=== PATIENT | male | born 1965 | race Caucasian/White ===

== ENCOUNTER 2020-08-04 17:40 | Emergency (ER) | payer BC ==
[~2020-08-04] VITALS: Ht 177.8 cm; Wt 65.0 kg
[~2020-08-04 17:40] MED LIST: ANTIVERT12.5 MG PO; AUGMENTIN875TAB OR; LIPITOR10 MG PO; MEDDOSEPAK PO; PREVACID; PREVACID15 M1 PO; ZPAK PO
[2020-08-04 18:13] LABS: HEMATOCRIT 42.8 % (39.0-50.0); IMMATURE GRANULOCYTES 0.2 % (0.0-5.0); MEAN CELL VOLUME 93.9 fL CALC (80.0-100.0); MEAN CORPUSCULAR HGB 30.5 pG CALC (26.0-32.0); MEAN CORPUSCULAR HGB CONC 32.5 g/dL CAL (32.0-36.0); NEUT# 4.69 thou/uL (1.82-7.42); RED BLOOD COUNT 4.56 mill/uL (4.70-6.10)
[2020-08-04 18:15] LABS: HEMOGLOBIN 13.9 g/dl (14.0-18.0)
[2020-08-04 18:33] LABS: ALBUMIN 4.3 g/dL (3.2-5.0); ALKALINE PHOSPHATASE 66 u/l (38-126); ANION GAP 13 (6-22 (CALC)); BILIRUBIN, TOTAL 0.8 mg/dL (0.0-1.4); BUN 12 mg/dL (9-20); BUN/CREATININE RATIO 16 (12-20 (CALC)); CARBON DIOXIDE 24 mmol/l (22-30); CHLORIDE 104 mmol/l (95-108); CREATININE 0.8 mg/dL (0.7-1.3); GFR > 60 ML/MIN (>=60 (CALC)); GFR FOR AFR.AMER. > 60 ML/MIN (>=60 (CALC)); POTASSIUM 4.2 mmol/l (3.5-5.1); SGOT/AST 29 u/l (17-59); SODIUM 137 mmol/l (137-146)
[2020-08-04] MEDS ORDERED: ZESTRIL5 M1 PO (18:56)
[2020-08-04] MEDS ORDERED: BAYER CHEWABLE81 MG PO (18:56)
[2020-08-04] MEDS ORDERED: METOPROL TAR25 M1 PO (18:56)
[2020-08-04] MEDS ORDERED: EZETIMIBE10 MG PO (18:57)
[2020-08-04 20:20] VITALS: BP 113/68
== END 2020-08-04 20:22 | disposition home or self-care (01) | DRG 310 ==
LOC: ED 17:40
PROVIDERS: Family Medicine
DX: R00.2 Palpitations (principal); I10 Essential (primary) hypertension; I25.2 Old myocardial infarction; Z95.5 Presence of coronary angioplasty implant and graft; F17.200 Nicotine dependence, unspecified, uncomplicated

== ENCOUNTER 2022-11-26 20:37 | Emergency (ER) | payer BC ==
[~2022-11-26] VITALS: Ht 177.8 cm; Wt 74.0 kg
[~2022-11-26 20:37] MED LIST changes: +BAYER CHEWABLE81 MG PO; +EZETIMIBE10 MG PO; +METOPROL TAR25 M1 PO; +ZESTRIL5 M1 PO
[2022-11-26 21:59] LABS: BASO% 0.3 % (0-3); EOS% 1.2 % (0-8); HEMATOCRIT 42.8 % (39.0-50.0); HEMOGLOBIN 14.6 g/dl (14.0-18.0); IMMATURE GRANULOCYTES 0.6 % (0.0-5.0); LYMPH% 15.9 % (15-41); MEAN CELL VOLUME 94.7 fL CALC (80.0-100.0); MEAN CORPUSCULAR HGB 32.3 pG CALC (26.0-32.0); MEAN CORPUSCULAR HGB CONC 34.1 g/dL CAL (32.0-36.0); MONO% 10.2 % (2-13); NEUT# 8.04 thou/uL (1.82-7.42); NEUT% 71.8 % (42-76); RED BLOOD COUNT 4.52 mill/uL (4.70-6.10); RED CELL DISTRI WIDTH 12.5 % (11.5-15.5)
[2022-11-26 22:12] LABS: ALBUMIN 4.2 g/dL (3.2-5.0); ALKALINE PHOSPHATASE 52 u/l (38-126); ANION GAP 10 (6-22 (CALC)); BILIRUBIN, TOTAL 0.6 mg/dL (0.0-1.4); BUN 14 mg/dL (9-20); BUN/CREATININE RATIO 12 (12-20 (CALC)); CARBON DIOXIDE 26 mmol/l (22-30); CHLORIDE 107 mmol/l (95-108); CREATININE 1.1 mg/dL (0.7-1.3); GFR FOR AFR.AMER. > 60 ML/MIN (>=60 (CALC)); GFR OTHER RACES > 60 ML/MIN (>=60 (CALC)); POTASSIUM 4.5 mmol/l (3.5-5.1); SGOT/AST 34 u/l (17-59); SODIUM 139 mmol/l (137-146)
[2022-11-26 23:44] VITALS: BP 111/74
== END 2022-11-27 00:28 | disposition home or self-care (01) | DRG 312 ==
LOC: ED 20:37
PROVIDERS: Emergency Medicine
DX: R55 Syncope and collapse (principal)

== ENCOUNTER 2024-12-30 14:24 | Emergency (ER) | payer BC ==
[~2024-12-30] VITALS: Ht 177.8 cm; Wt 75.0 kg
[2024-12-30] VITALS (8 sets, daily range): BP systolic 108–138; BP diastolic 61–77
[2024-12-30] MEDS ORDERED: ATORVASTATIN CA40 MG PO (14:54)
[2024-12-30] MEDS ORDERED: LISINOPRIL10 MG PO (14:54)
[2024-12-30] MEDS ORDERED: PREVACID30 M1 PO (14:55)
[2024-12-30] MEDS ORDERED: ZETIA10 MG PO (14:55)
[2024-12-30] MEDS ORDERED: TRELEGY ELLIPTA1 AER PO (14:58)
[2024-12-30 15:06] LABS: BASO% 0.2 % (0-3); EOS% 0.6 % (0-8); HEMATOCRIT 40.9 % (39.0-50.0); HEMOGLOBIN 13.8 g/dl (14.0-18.0); IMMATURE GRANULOCYTES 0.2 % (0.0-5.0); LYMPH% 14.5 % (15-41); MEAN CELL VOLUME 93.2 fL CALC (80.0-100.0); MEAN CORPUSCULAR HGB 31.4 pG CALC (26.0-32.0); MEAN CORPUSCULAR HGB CONC 33.7 g/dL CAL (32.0-36.0); NEUT# 8.47 thou/uL (1.82-7.42); NEUT% 72.5 % (42-76); RED BLOOD COUNT 4.39 mill/uL (4.70-6.10); RED CELL DISTRI WIDTH 12.5 % (11.5-15.5)
[2024-12-30 15:23] LABS: ALBUMIN 4.3 g/dL (3.2-5.0); ANION GAP 12 (6-22 (CALC)); BUN 19 mg/dL (9-20); BUN/CREATININE RATIO 12 (12-20 (CALC)); CARBON DIOXIDE 23 mmol/l (22-30); CHLORIDE 105 mmol/l (95-108); CREATININE 1.7 mg/dL (0.7-1.3); ESTIMATED GFR 46 ML/MIN (>=90 (CALC)); LIPASE 95 u/l (23-300); POTASSIUM 4.1 mmol/l (3.5-5.1); SGOT/AST 35 u/l (17-59); SODIUM 136 mmol/l (137-146); TOTAL PROTEIN 7.2 g/dL (6.3-8.2)
[2024-12-30 15:40] LABS: ALKALINE PHOSPHATASE 80 u/l (38-126); BILIRUBIN, TOTAL 0.9 mg/dL (0.2-1.3)
[2024-12-30 16:45] LABS: URINE BILIRUBIN - DIPSTICK Negative (NEGATIVE); URINE BLOOD DIPSTICK Negative (NEGATIVE); URINE COLOR Yellow; URINE GLUCOSE - DIPSTICK Negative (NEGATIVE); URINE KETONE Negative (NEGATIVE); URINE LEUK ESTERASE Negative (NEGATIVE); URINE NITRITE - DIPSTICK Negative (Negative); URINE PH 5.5 (4.5-8.0); URINE PROTEIN - DIPSTICK Negative (NEG-TRACE); URINE SPECIFIC GRAVITY <=1.005; URINE UROBILINOGEN - DIPSTICK 0.2 E.U./dL (0.2)
[2024-12-30] MEDS ORDERED: PROTONIX40 M2 PO (17:29)
== END 2024-12-30 17:35 | disposition home or self-care (01) | DRG 392 ==
LOC: ED 14:24
PROVIDERS: Family Medicine
DX: R11.0 Nausea (principal); I10 Essential (primary) hypertension; E78.5 Hyperlipidemia, unspecified; I25.2 Old myocardial infarction; Z95.5 Presence of coronary angioplasty implant and graft; Z87.11 Personal history of peptic ulcer disease; Z77.22 Contact with and (suspected) exposure to environmental tobacco smoke (acute) (chronic)